=== PATIENT | male | born 1990 ===

== ENCOUNTER 2023-08-16 04:13 | Outpatient (CLI) | payer MEDICAID, SELFPAY ==
[2023-08-16 12:57] LABS: Cholesterol 322 mg/dL (<200); Glucose 117 mg/dL (74-106); HDL Cholesterol 63 mg/dL (40-60); Triglyceride 411 mg/dL (<150)
[2023-08-16 13:10] LABS: LDL CHOLESTEROL 181 mg/dL (<100)
== END 2023-08-16 04:14 | disposition home or self-care (01) ==
LOC: LBO 04:14
PROVIDERS: PCP Family Medicine; Visit Provider Family Medicine
DX: Z00.00 Encounter for general adult medical examination without abnormal findings (principal)
CPT/HCPCS: 36415; 80061; 82947; 83721

== ENCOUNTER 2025-01-15 16:52 | Outpatient (REF) | payer MEDICAID, SELFPAY ==
[2025-01-15 16:21] LABS: Hemoglobin A1C 5.4 % (<5.7)
[2025-01-15 16:22] LABS: ALT 63 U/L (16-63); AST 39 U/L (15-37); Albumin 4.3 g/dL (3.4-5.0); Alkaline Phosphatase 51 U/L (46-116); Anion Gap 13.1 mmol/L (3-11); BUN 14 mg/dL (7-18); Bilirubin, Total 0.5 mg/dL (0.2-1.0); CO2 24.9 mmol/L (21.0-32.0); Calcium 9.2 mg/dL (8.5-10.1); Calculated LDL 156 mg/dL (<100); Chloride 103 mmol/L (98-107); Cholesterol 284 mg/dL (<200); Estimated GFR 118.36 (mL/min/1.73m2); Glucose 102 mg/dL (74-106); HDL Cholesterol 54 mg/dL (>or=40); Potassium 4.2 mmol/L (3.5-5.1); Sodium 141 mmol/L (136-145); Total Protein 7.4 g/dL (6.4-8.2); Triglyceride 374 mg/dL (<150)
== END 2025-01-15 16:53 | disposition home or self-care (01) ==
LOC: NCHCN 16:52
PROVIDERS: PCP Family Medicine; Visit Provider Family Medicine
DX: E78.5 Hyperlipidemia, unspecified (principal); R73.01 Impaired fasting glucose
CPT/HCPCS: 80053; 80061; 83036